=== PATIENT | female | born 1980 ===

== ENCOUNTER 2020-08-09 16:18 | Emergency (ER) | payer OTHER ==
[~2020-08-09] VITALS: Ht 172.7 cm; Wt 81.7 kg
[2020-08-09] MEDS ORDERED: OXYC5 PO (17:29)
== END 2020-08-09 17:52 | disposition home or self-care (01) ==
LOC: ER 16:18
DX: S93.601A Unspecified sprain of right foot, initial encounter (principal); W01.0XXA Fall on same level from slipping, tripping and stumbling without subsequent striking against object, initial encounter; Y93.K1 Activity, walking an animal
CPT/HCPCS: 29515; 73610; 73630; 96372; 99283-25; A9270; J1885